=== PATIENT | male | born 1950 | race Caucasian/White ===

== ENCOUNTER 2019-07-09 13:26 | Inpatient (IN) ==
[2019-07-09 14:01] LABS: Basophils % 0.2 %; Hematocrit 43.1 % (37.5-50.1); Hemoglobin 13.9 g/dL (12.9-16.9); Immature Granulocytes % 0.4 % (0-4); Lymphocytes # 0.3 K/mcL (0.6-4.6); Lymphocytes % 2.5 %; Mean Corpuscular HGB Conc 32.3 g/dL (31.6-35.5); Mean Corpuscular Hemoglobin 27.8 pg (28.0-33.3); Mean Corpuscular Volume 86.2 fL (83.0-100.0); Mean Platelet Volume 9.7 fL (9.4-12.4); Monocytes # 0.8 K/mcL (0.0-1.3); Monocytes % 6.3 %; Platelet Count 261 K/mcL (140-400); Red Cell Distribution Width 14.2 % (11.5-14.5); Segmented Neutrophils % 90.6 %; White Blood Count 12.2 K/mcL (4.3-11.1)
[2019-07-09 14:13] LABS: Prothrombin Time 11.2 Seconds (9.4-12.1)
[2019-07-09 14:15] LABS: Activated Partial Thrombo Time 24.8 Seconds (26.0-36.0)
[2019-07-09 14:24] LABS: Alanine Aminotransferase 97 Units/L (7-52); Albumin 4.2 g/dL (3.5-5.7); Albumin/Globulin Ratio 1.8 (1.1-2.2); Alkaline Phosphatase 62 Units/L (34-104); Aspartate Amino Transferase 151 Units/L (13-39); BUN/Creatinine Ratio 18 (6-26); Bilirubin,Indirect 1.5 mg/dL (0.0-1.2); Bilirubin,Total 2.5 mg/dL (0.3-1.0); Blood Urea Nitrogen 18 mg/dL (8-23); Calcium 9.3 mg/dL (8.6-10.3); Carbon Dioxide 28 mEq/L (23-29); Chloride 103 mEq/L (98-107); Globulin 2.4 g/dL (2.4-3.5); Glucose 119 mg/dL (70-105); Lipase 89 Units/L (11-82); Osmolality,Calculated 289 (280-300); Potassium 4.2 mEq/L (3.5-5.1); Sodium 138 mEq/L (136-145); Total Protein 6.6 g/dL (6.4-8.9); Troponin I < 0.03 ng/mL (< 0.04); eGFR For African Americans > 60 (> 60); eGFR For Non-African Americans > 60 (> 60)
[2019-07-09 14:30] LABS: Bilirubin,Urine Negative (Negative); Blood,Urine Trace (Negative); Clarity,Urine Clear (Clear); Color,Urine Yellow (Yellow); Glucose,Urine (UA) Normal (Normal); Ketones,Urine Trace mg/dL (Negative); Leukocyte Esterase,Urine Negative (Negative); Nitrite,Urine Negative (Negative); Protein,Urine Negative (Neg-Trace); Specific Gravity,Urine 1.019 (1.010-1.025); Urobilinogen,Urine Normal (Normal)
[2019-07-09 14:32] LABS: Hyaline Casts,Urine None Seen per lpf (None-Few); Squamous Epithelial Cell,Urine Few per lpf (None-Few); WBC,Urine 0-3 per hpf (0-3)
[2019-07-09] MEDS ORDERED: Isovue-370 500 ML BOTTLE IVP ONE (14:42)
[2019-07-09 14:57] LABS: Bacteria,Urine Few per hpf (None-Few)
[2019-07-09] MEDS ORDERED: Piperacillin/Tazobactam 3.375 GM in 0.9 % Sodium Chloride Mini Bag 100 ML IVPB ONE (15:56)
[2019-07-09] MEDS ORDERED: Ondansetron 4 MG/2 ML VIAL IVP PRN (18:16)
[2019-07-09] MEDS ORDERED: Naloxone 0.4 MG/ML INJ IVP PRN (18:16)
[2019-07-09] MEDS ORDERED: *HR* OxyCODONE Immed Rel 5 MG TABLET PO PRN (18:23)
[2019-07-09] MEDS: Pantoprazole 40 MG VIAL IVP SCH (19:05)
[2019-07-09] MEDS: 0.9 % Sodium Chloride 1,000 ML IVC SCH (19:05)
[2019-07-09] MEDS: *HR* Heparin 5,000 UNIT/ML VIAL SQ SCH (22:12)
[2019-07-10] MEDS: Piperacillin/Tazobactam 3.375 GM in 0.9 % Sodium Chloride Mini Bag 100 ML IVPB SCH ×3 (00:37→16:22)
[2019-07-10] MEDS: *HR* Heparin 5,000 UNIT/ML VIAL SQ SCH ×3 (05:18→21:33)
[2019-07-10 05:23] LABS: Basophils % 0.5 %; Eosinophils # 0.1 K/mcL (0.0-0.6); Eosinophils % 0.8 %; Immature Granulocytes % 0.3 % (0-4); Lymphocytes # 0.5 K/mcL (0.6-4.6); Lymphocytes % 8.7 %; Mean Corpuscular HGB Conc 32.4 g/dL (31.6-35.5); Mean Corpuscular Volume 86.6 fL (83.0-100.0); Mean Platelet Volume 9.8 fL (9.4-12.4); Monocytes # 0.8 K/mcL (0.0-1.3); Monocytes % 12.8 %; Neutrophils # 4.6 K/mcL (1.6-8.9); Platelet Count 226 K/mcL (140-400); Red Blood Count 4.39 M/mcL (4.19-5.50); Red Cell Distribution Width 14.2 % (11.5-14.5); Segmented Neutrophils % 76.9 %
[2019-07-10 05:41] LABS: Alanine Aminotransferase 389 Units/L (7-52); Albumin 3.3 g/dL (3.5-5.7); Albumin/Globulin Ratio 1.7 (1.1-2.2); Alkaline Phosphatase 90 Units/L (34-104); Aspartate Amino Transferase 301 Units/L (13-39); BUN/Creatinine Ratio 11 (6-26); Bilirubin,Total 4.9 mg/dL (0.3-1.0); Blood Urea Nitrogen 16 mg/dL (8-23); Calcium 8.3 mg/dL (8.6-10.3); Carbon Dioxide 27 mEq/L (23-29); Chloride 107 mEq/L (98-107); Glucose 83 mg/dL (70-105); Osmolality,Calculated 290 (280-300); Sodium 140 mEq/L (136-145); Total Protein 5.3 g/dL (6.4-8.9); eGFR For African Americans > 60 (> 60); eGFR For Non-African Americans 50 (> 60)
[2019-07-10 06:03] LABS: Hemoglobin 12.3 g/dL (12.9-16.9)
[2019-07-10] MEDS ORDERED: Piperacillin/Tazobactam 3.375 GM VIAL ONE (08:09)
[2019-07-10] MEDS: Pantoprazole 40 MG VIAL IVP SCH (08:30)
[2019-07-10] MEDS: 0.9 % Sodium Chloride 1,000 ML IVC SCH (08:39)
[2019-07-10] MEDS ORDERED: amLODIPine 5 MG TABLET PO SCH (09:00)
[2019-07-10] MEDS ORDERED: predniSONE 5 MG TABLET PO SCH (09:00)
[2019-07-10] MEDS ORDERED: Lisinopril 20 MG TABLET PO SCH (09:00)
[2019-07-10 09:09] LABS: Hepatitis B Surface Antigen Nonreactive (Nonreactive)
[2019-07-10 09:38] LABS: Hepatitis B Core IgM Nonreactive (Nonreactive)
[2019-07-10 09:39] LABS: Hepatitis A Antibody IgM Nonreactive (Nonreactive); Hepatitis C Virus Antibody Nonreactive (Nonreactive)
[2019-07-10] MEDS ORDERED: *HR* Propofol 200 MG/20 ML VIAL IVP ONE (21:23)
[2019-07-10] MEDS ORDERED: *HR* FentaNYL (PF) 100 MCG/2 ML VIAL ONE (21:23)
[2019-07-10] MEDS ORDERED: Lidocaine -MPF 2% 2 ML VIAL ONE (21:23)
[2019-07-10] MEDS ORDERED: *HR* Midazolam HCl 2 MG/2 ML VIAL ONE (21:24)
[2019-07-10] MEDS ORDERED: Lidocaine HCL 4 ML Topical Solution (Laryng-O-Jet Kit Sterile Pak) TP ONE (21:24)
[2019-07-10] MEDS ORDERED: Acetaminophen IV 1,000 MG/100 ML INFUS..BTL ONE (21:26)
[2019-07-10] MEDS ORDERED: *HR* Cisatracurium 10 MG/5 ML VIAL IV ONE (21:26)
[2019-07-10] MEDS ORDERED: *HR* OxyCODONE Immed Rel 5 MG TABLET PO PRN (21:45)
[2019-07-10] MEDS ORDERED: Morphine Sulfate 2 MG/ML SYRINGE IVP PRN (21:45)
[2019-07-10] MEDS ORDERED: Ondansetron 4 MG/2 ML VIAL ONE (22:10)
[2019-07-10] MEDS ORDERED: Dexamethasone 4 MG/ML VIAL ONE (22:14)
[2019-07-10] MEDS ORDERED: Ketorolac 15 MG/ML VIAL IVP ONE (23:44)
[2019-07-11] MEDS ORDERED: Naloxone 0.4 MG/ML INJ IVP PRN (00:33)
[2019-07-11] MEDS ORDERED: Ondansetron 4 MG/2 ML VIAL IVP PRN (00:33)
[2019-07-11] MEDS ORDERED: *HR* OxyCODONE Immed Rel 5 MG TABLET PO PRN (00:33)
[2019-07-11] MEDS: Piperacillin/Tazobactam 3.375 GM in 0.9 % Sodium Chloride Mini Bag 100 ML IVPB SCH ×4 (00:59→23:53)
[2019-07-11 05:13] LABS: Basophils % 0.1 %; Hematocrit 41.9 % (37.5-50.1); Hemoglobin 13.4 g/dL (12.9-16.9); Immature Granulocytes % 0.4 % (0-4); Lymphocytes # 0.2 K/mcL (0.6-4.6); Lymphocytes % 1.8 %; Mean Corpuscular Volume 87.5 fL (83.0-100.0); Monocytes # 0.7 K/mcL (0.0-1.3); Monocytes % 6.2 %; Neutrophils # 9.7 K/mcL (1.6-8.9); Platelet Count 226 K/mcL (140-400); Red Blood Count 4.79 M/mcL (4.19-5.50); Red Cell Distribution Width 14.4 % (11.5-14.5); Segmented Neutrophils % 91.5 %
[2019-07-11] MEDS: *HR* Heparin 5,000 UNIT/ML VIAL SQ SCH ×3 (05:13→21:03)
[2019-07-11 05:14] LABS: White Blood Count 10.6 K/mcL (4.3-11.1)
[2019-07-11 05:32] LABS: Platelet Estimate Normal (Normal)
[2019-07-11 05:33] LABS: Alanine Aminotransferase 325 Units/L (7-52); Albumin 3.6 g/dL (3.5-5.7); Albumin/Globulin Ratio 1.6 (1.1-2.2); Alkaline Phosphatase 169 Units/L (34-104); Aspartate Amino Transferase 206 Units/L (13-39); BUN/Creatinine Ratio 14 (6-26); Bilirubin,Direct 4.9 mg/dL (0.0-0.2); Bilirubin,Indirect 2.7 mg/dL (0.0-1.2); Bilirubin,Total 7.6 mg/dL (0.3-1.0); Blood Urea Nitrogen 17 mg/dL (8-23); Calcium 8.8 mg/dL (8.6-10.3); Carbon Dioxide 24 mEq/L (23-29); Chloride 100 mEq/L (98-107); Globulin 2.2 g/dL (2.4-3.5); Glucose 117 mg/dL (70-105); Osmolality,Calculated 289 (280-300); Potassium 4.8 mEq/L (3.5-5.1); Sodium 138 mEq/L (136-145); Total Protein 5.8 g/dL (6.4-8.9); eGFR For African Americans > 60 (> 60); eGFR For Non-African Americans > 60 (> 60)
[2019-07-11] MEDS: amLODIPine 5 MG TABLET PO SCH (09:03)
[2019-07-11] MEDS: Pantoprazole 40 MG VIAL IVP SCH (09:04)
[2019-07-11] MEDS: Lisinopril 20 MG TABLET PO SCH (09:04)
[2019-07-11] MEDS: predniSONE 5 MG TABLET PO SCH (09:04)
[2019-07-12] MEDS: *HR* Heparin 5,000 UNIT/ML VIAL SQ SCH ×3 (05:04→22:36)
[2019-07-12] MEDS: amLODIPine 5 MG TABLET PO SCH (09:15)
[2019-07-12] MEDS: Piperacillin/Tazobactam 3.375 GM in 0.9 % Sodium Chloride Mini Bag 100 ML IVPB SCH ×3 (09:16→19:57)
[2019-07-12] MEDS: Lisinopril 20 MG TABLET PO SCH (09:16)
[2019-07-12] MEDS: Pantoprazole 40 MG VIAL IVP SCH (09:16)
[2019-07-12] MEDS: predniSONE 5 MG TABLET PO SCH (09:16)
[2019-07-12 10:33] LABS: Basophils % 0.2 %; Eosinophils % 0.2 %; Hematocrit 38.6 % (37.5-50.1); Hemoglobin 12.4 g/dL (12.9-16.9); Immature Granulocytes % 0.4 % (0-4); Lymphocytes # 0.6 K/mcL (0.6-4.6); Lymphocytes % 7.4 %; Mean Corpuscular HGB Conc 32.1 g/dL (31.6-35.5); Mean Corpuscular Hemoglobin 28.1 pg (28.0-33.3); Mean Corpuscular Volume 87.5 fL (83.0-100.0); Mean Platelet Volume 9.9 fL (9.4-12.4); Monocytes # 0.8 K/mcL (0.0-1.3); Monocytes % 9.2 %; Neutrophils # 6.9 K/mcL (1.6-8.9); Platelet Count 201 K/mcL (140-400); Red Blood Count 4.41 M/mcL (4.19-5.50); Red Cell Distribution Width 14.7 % (11.5-14.5); Segmented Neutrophils % 82.6 %; White Blood Count 8.4 K/mcL (4.3-11.1)
[2019-07-12 10:41] LABS: INR 1.1
[2019-07-12 10:48] LABS: Alanine Aminotransferase 210 Units/L (7-52); Albumin 3.3 g/dL (3.5-5.7); Albumin/Globulin Ratio 1.4 (1.1-2.2); Albumin/Globulin Ratio 1.6 (1.1-2.2); Alkaline Phosphatase 149 Units/L (34-104); Aspartate Amino Transferase 74 Units/L (13-39); BUN/Creatinine Ratio 16 (6-26); Bilirubin,Direct 0.7 mg/dL (0.0-0.2); Bilirubin,Indirect 1.1 mg/dL (0.0-1.2); Bilirubin,Total 1.8 mg/dL (0.3-1.0); Blood Urea Nitrogen 18 mg/dL (8-23); Calcium 8.3 mg/dL (8.6-10.3); Carbon Dioxide 27 mEq/L (23-29); Chloride 104 mEq/L (98-107); Globulin 2.1 g/dL (2.4-3.5); Globulin 2.3 g/dL (2.4-3.5); Glucose 94 mg/dL (70-105); Osmolality,Calculated 290 (280-300); Sodium 139 mEq/L (136-145); Total Protein 5.4 g/dL (6.4-8.9); Total Protein 5.6 g/dL (6.4-8.9); eGFR For African Americans > 60 (> 60); eGFR For Non-African Americans > 60 (> 60)
[2019-07-12 10:49] LABS: BUN/Creatinine Ratio 16 (6-26); Blood Urea Nitrogen 18 mg/dL (8-23); Calcium 8.2 mg/dL (8.6-10.3); Carbon Dioxide 27 mEq/L (23-29); Chloride 104 mEq/L (98-107); Glucose 92 mg/dL (70-105); Osmolality,Calculated 292 (280-300); Sodium 140 mEq/L (136-145); eGFR For African Americans > 60 (> 60); eGFR For Non-African Americans > 60 (> 60)
[2019-07-13] MEDS: Piperacillin/Tazobactam 3.375 GM in 0.9 % Sodium Chloride Mini Bag 100 ML IVPB SCH ×2 (00:47→07:59)
[2019-07-13] MEDS: *HR* Heparin 5,000 UNIT/ML VIAL SQ SCH ×2 (05:46→14:24)
[2019-07-13 06:34] LABS: Basophils % 0.6 %; Eosinophils # 0.1 K/mcL (0.0-0.6); Eosinophils % 0.9 %; Hematocrit 38.3 % (37.5-50.1); Hemoglobin 12.4 g/dL (12.9-16.9); Immature Granulocytes % 0.3 % (0-4); Lymphocytes # 0.9 K/mcL (0.6-4.6); Mean Corpuscular HGB Conc 32.4 g/dL (31.6-35.5); Mean Corpuscular Hemoglobin 28.2 pg (28.0-33.3); Mean Platelet Volume 9.8 fL (9.4-12.4); Monocytes # 0.8 K/mcL (0.0-1.3); Monocytes % 11.3 %; Neutrophils # 4.9 K/mcL (1.6-8.9); Platelet Count 193 K/mcL (140-400); Red Cell Distribution Width 14.5 % (11.5-14.5); Segmented Neutrophils % 72.9 %; White Blood Count 6.7 K/mcL (4.3-11.1)
[2019-07-13 06:54] LABS: Albumin 3.4 g/dL (3.5-5.7); Albumin/Globulin Ratio 1.4 (1.1-2.2); Bilirubin,Direct 0.5 mg/dL (0.0-0.2); Bilirubin,Indirect 1.1 mg/dL (0.0-1.2); Bilirubin,Total 1.6 mg/dL (0.3-1.0); Globulin 2.5 g/dL (2.4-3.5); Total Protein 5.9 g/dL (6.4-8.9)
[2019-07-13] MEDS: amLODIPine 5 MG TABLET PO SCH (07:59)
[2019-07-13] MEDS: Lisinopril 20 MG TABLET PO SCH (07:59)
[2019-07-13] MEDS: Pantoprazole 40 MG VIAL IVP SCH (07:59)
[2019-07-13] MEDS: predniSONE 5 MG TABLET PO SCH (07:59)
[2019-07-13 14:15] VITALS: BP 109/70
== END 2019-07-13 16:02 | disposition home or self-care (01) | DRG 419 ==
LOC: 3ANU 13:26 → EMEROOARM 13:26 → SUATTDRO 17:56 → 3ANU 18:37
PROVIDERS: ADMIT Internal Medicine; ATTEND Family Medicine

== ENCOUNTER 2020-03-26 22:50 | Observation (INO) ==
[2020-03-27] MEDS ORDERED: Isovue-370 500 ML BOTTLE IVP ONE (00:42)
[2020-03-27 00:45] LABS: Basophils % 0.2 %; Eosinophils % 0.1 %; Hematocrit 52.1 % (37.5-50.1); Hemoglobin 16.8 g/dL (12.9-16.9); Immature Granulocytes % 0.4 % (0-4); Lymphocytes # 0.5 K/mcL (0.6-4.6); Lymphocytes % 3.3 %; Mean Corpuscular HGB Conc 32.2 g/dL (31.6-35.5); Mean Corpuscular Hemoglobin 29.6 pg (28.0-33.3); Mean Corpuscular Volume 91.7 fL (83.0-100.0); Mean Platelet Volume 9.5 fL (9.4-12.4); Monocytes # 0.7 K/mcL (0.0-1.3); Monocytes % 4.9 %; Neutrophils # 12.4 K/mcL (1.6-8.9); Platelet Count 300 K/mcL (140-400); Red Blood Count 5.68 M/mcL (4.19-5.50); Red Cell Distribution Width 14.2 % (11.5-14.5); Segmented Neutrophils % 91.1 %; White Blood Count 13.6 K/mcL (4.3-11.1)
[2020-03-27] MEDS ORDERED: 0.9 % Sodium Chloride 1,000 ML IVC STA ×2 (00:53→02:36)
[2020-03-27] MEDS ORDERED: Ondansetron 4 MG/2 ML VIAL IVP STA (00:53)
[2020-03-27 01:06] LABS: Alanine Aminotransferase 14 Units/L (7-52); Albumin 4.5 g/dL (3.5-5.7); Albumin/Globulin Ratio 1.6 (1.1-2.2); Alkaline Phosphatase 49 Units/L (34-104); Aspartate Amino Transferase 16 Units/L (13-39); BUN/Creatinine Ratio 26 (6-26); Bilirubin,Direct 0.5 mg/dL (0.0-0.2); Bilirubin,Indirect 2.3 mg/dL (0.0-1.0); Bilirubin,Total 2.8 mg/dL (0.3-1.0); Blood Urea Nitrogen 33 mg/dL (8-23); Calcium 9.8 mg/dL (8.6-10.3); Carbon Dioxide 27 mEq/L (23-29); Chloride 101 mEq/L (98-107); Globulin 2.8 g/dL (2.4-3.5); Glucose 111 mg/dL (70-105); Lipase 41 Units/L (11-82); Magnesium 2.2 mg/dL (1.6-2.6); Osmolality,Calculated 298 (280-300); Potassium 4.2 mEq/L (3.5-5.1); Sodium 140 mEq/L (136-145); Total Protein 7.3 g/dL (6.4-8.9); eGFR For African Americans > 60 (> 60); eGFR For Non-African Americans 57 (> 60)
[2020-03-27 02:25] LABS: Bacteria,Urine Few per hpf (None-Few); Bilirubin,Urine Negative (Negative); Blood,Urine Moderate (Negative); Clarity,Urine Clear (Clear); Color,Urine Yellow (Yellow); Glucose,Urine (UA) Normal (Normal); Hyaline Casts,Urine Many per lpf (None Seen); Ketones,Urine 80 mg/dL (Negative); Leukocyte Esterase,Urine Negative (Negative); Mucus,Urine Many per lpf (None-Few); Nitrite,Urine Negative (Negative); PH,Urine 5.5 pH Units (5.0-8.0); Protein,Urine 50 mg/dL (Neg-Trace); RBC,Urine 50-100 per hpf (0-3); Specific Gravity,Urine > 1.030 (1.010-1.025); Urobilinogen,Urine Normal (Normal); WBC,Urine 0-3 per hpf (0-3)
[2020-03-27] MEDS ORDERED: Benzocaine 20% 12 APPL GEL..GRAM. TP ONE (02:54)
[2020-03-27] MEDS ORDERED: *HR* HYDROcodone/Acet 5/325 mg TABLET PO PRN (03:58)
[2020-03-27] MEDS ORDERED: *HR* OxyCODONE Immed Rel 5 MG TABLET PO PRN (03:58)
[2020-03-27] MEDS ORDERED: *HR* Promethazine 25 MG/ML VIAL IVP PRN (03:58)
[2020-03-27] MEDS ORDERED: Ondansetron 4 MG/2 ML VIAL IVP PRN (03:58)
[2020-03-27] MEDS ORDERED: Naloxone 0.4 MG/ML INJ IVP PRN (03:58)
[2020-03-27] MEDS ORDERED: 0.9 % Sodium Chloride 1,000 ML IVC SCH (04:00)
[2020-03-27] MEDS: *HR* LORazepam 0.5 MG TABLET PO ONE ×2 (05:17→05:23)
[2020-03-27] MEDS ORDERED: *HR* LORazepam 2 MG/ML VIAL IVP ONE (05:21)
[2020-03-27] MEDS ORDERED: *HR* Metoprolol 5 MG/5 ML VIAL IVP PRN (05:21)
[2020-03-27] MEDS ORDERED: Dextrose Gel 15 GM/37.5 ML TUBE PO PRN ×2 (08:05)
[2020-03-27] MEDS ORDERED: *HR* Dextrose 50 % in Water (Vial) 50 ML VIAL IVP PRN (08:05)
[2020-03-27] MEDS ORDERED: D5% in Water 1,000 ML IVC PRN (08:05)
[2020-03-27] MEDS: Pantoprazole 40 MG VIAL IVP SCH (08:44)
[2020-03-27] MEDS ORDERED: AMLODIPINE BESYLATE PO SCH (09:00)
[2020-03-27] MEDS ORDERED: [UNRECOGNIZED DRUG - OTHER] PO SCH (09:00)
[2020-03-27] MEDS ORDERED: amLODIPine 5 MG TABLET PO SCH (09:00)
[2020-03-27] MEDS ORDERED: lisinopriL 20 MG TABLET PO SCH (09:00)
[2020-03-27] MEDS ORDERED: BENAZEPRIL PO SCH (09:00)
[2020-03-27] MEDS: *HR* HYDROmorphone (PF) 1 MG/ML SYRINGE IVP PRN ×2 (09:03→14:34)
[2020-03-27] MEDS: Insulin LISPRO 300 UNITS/3 ML VIAL SQ SCH ×3 (12:00→23:28)
[2020-03-27] MEDS ORDERED: D5% in 0.9% NACL 1,000 ML IVC SCH (12:15)
[2020-03-28 02:44] LABS: Basophils % 0.5 %; Eosinophils # 0.1 K/mcL (0.0-0.6); Eosinophils % 1.3 %; Hematocrit 38.4 % (37.5-50.1); Hemoglobin 12.4 g/dL (12.9-16.9); Immature Granulocytes % 0.3 % (0-4); Lymphocytes # 0.8 K/mcL (0.6-4.6); Lymphocytes % 13.2 %; Mean Corpuscular HGB Conc 32.3 g/dL (31.6-35.5); Mean Corpuscular Hemoglobin 30.4 pg (28.0-33.3); Mean Corpuscular Volume 94.1 fL (83.0-100.0); Mean Platelet Volume 9.9 fL (9.4-12.4); Monocytes # 0.7 K/mcL (0.0-1.3); Monocytes % 12.1 %; Neutrophils # 4.4 K/mcL (1.6-8.9); Platelet Count 194 K/mcL (140-400); Red Blood Count 4.08 M/mcL (4.19-5.50); Red Cell Distribution Width 13.9 % (11.5-14.5); Segmented Neutrophils % 72.6 %; White Blood Count 6.1 K/mcL (4.3-11.1)
[2020-03-28 03:01] LABS: BUN/Creatinine Ratio 21 (6-26); Blood Urea Nitrogen 18 mg/dL (8-23); Calcium 7.7 mg/dL (8.6-10.3); Carbon Dioxide 27 mEq/L (23-29); Chloride 108 mEq/L (98-107); Glucose 82 mg/dL (70-105); Magnesium 1.9 mg/dL (1.6-2.6); Osmolality,Calculated 289 (280-300); Phosphorous 1.9 mg/dL (2.7-4.5); Sodium 139 mEq/L (136-145); eGFR For African Americans > 60 (> 60); eGFR For Non-African Americans > 60 (> 60)
[2020-03-28] MEDS: Insulin LISPRO 300 UNITS/3 ML VIAL SQ SCH ×3 (05:06→15:40)
[2020-03-28] MEDS: Pantoprazole 40 MG VIAL IVP SCH (07:51)
[2020-03-28] MEDS ORDERED: predniSONE 5 MG TABLET PO PRN (13:06)
[2020-03-29 01:03] LABS: Basophils % 0.4 %; Eosinophils # 0.1 K/mcL (0.0-0.6); Eosinophils % 1.2 %; Hematocrit 41.5 % (37.5-50.1); Hemoglobin 13.8 g/dL (12.9-16.9); Immature Granulocytes % 0.2 % (0-4); Lymphocytes # 0.6 K/mcL (0.6-4.6); Lymphocytes % 12.4 %; Mean Corpuscular HGB Conc 33.3 g/dL (31.6-35.5); Mean Corpuscular Hemoglobin 30.3 pg (28.0-33.3); Mean Corpuscular Volume 91.2 fL (83.0-100.0); Mean Platelet Volume 10.2 fL (9.4-12.4); Monocytes # 0.6 K/mcL (0.0-1.3); Neutrophils # 3.8 K/mcL (1.6-8.9); Platelet Count 215 K/mcL (140-400); Red Blood Count 4.55 M/mcL (4.19-5.50); Red Cell Distribution Width 13.4 % (11.5-14.5); Segmented Neutrophils % 73.8 %; White Blood Count 5.2 K/mcL (4.3-11.1)
[2020-03-29 01:22] LABS: Alanine Aminotransferase 23 Units/L (7-52); Albumin 3.9 g/dL (3.5-5.7); Albumin/Globulin Ratio 1.6 (1.1-2.2); Alkaline Phosphatase 51 Units/L (34-104); Aspartate Amino Transferase 22 Units/L (13-39); BUN/Creatinine Ratio 13 (6-26); Bilirubin,Total 1.7 mg/dL (0.3-1.0); Blood Urea Nitrogen 11 mg/dL (8-23); Calcium 8.5 mg/dL (8.6-10.3); Carbon Dioxide 28 mEq/L (23-29); Chloride 103 mEq/L (98-107); Globulin 2.5 g/dL (2.4-3.5); Glucose 75 mg/dL (70-105); Magnesium 1.8 mg/dL (1.6-2.6); Osmolality,Calculated 288 (280-300); Phosphorous 2.8 mg/dL (2.7-4.5); Potassium 3.3 mEq/L (3.5-5.1); Sodium 140 mEq/L (136-145); Total Protein 6.4 g/dL (6.4-8.9); eGFR For African Americans > 60 (> 60); eGFR For Non-African Americans > 60 (> 60)
[2020-03-29] MEDS: Insulin LISPRO 300 UNITS/3 ML VIAL SQ SCH ×2 (05:16)
[2020-03-29] MEDS: Pantoprazole 40 MG VIAL IVP SCH (08:28)
[2020-03-29] MEDS ORDERED: *HR* FentaNYL (PF) 100 MCG/2 ML VIAL ONE (10:20)
[2020-03-29 15:28] VITALS: BP 126/75
== END 2020-03-29 17:04 | disposition home or self-care (01) ==
LOC: 3NENU 22:50 → EMEROOARM 22:50 → SUATTDRO 03-27 02:52 → 3NENU 03-27 04:36
PROVIDERS: ADMIT Internal Medicine; ATTEND Internal Medicine